=== PATIENT | female | born 1980 | race Caucasian/White ===

== ENCOUNTER 2021-10-20 20:46 | Emergency (ER) | payer OTHER ==
[2021-10-20] MEDS ORDERED: Ketorolac 30 MG/ML SDV IM ONE (21:10)
== END 2021-10-20 22:24 | disposition home or self-care (01) ==
LOC: JP.ED 20:46
DX: S52.615A Nondisplaced fracture of left ulna styloid process, initial encounter for closed fracture (principal); S52.572A Other intraarticular fracture of lower end of left radius, initial encounter for closed fracture; S80.212A Abrasion, left knee, initial encounter; W01.0XXA Fall on same level from slipping, tripping and stumbling without subsequent striking against object, initial encounter
CPT/HCPCS: 29125; 73110; 96372; 99283; J1885